=== PATIENT | male | born 1955 | race Caucasian/White ===

== ENCOUNTER 2017-10-18 11:03 | Day surgery (SDC) | payer OTHER ==
[~2017-10-18 11:03] MED LIST: Buffered Lidocaine 0.9% SYRIN* 5 ML/SYR SYRINGE INTRADERM ONE
[2017-10-18] MEDS ORDERED: ceFAZolin 2 GM PREMIX (*) 2 GM/50 ML BAG IVPB ONE (11:10)
[2017-10-18] MEDS ORDERED: Buffered Lidocaine 0.9% SYRIN* 5 ML/SYR SYRINGE ONE (11:10)
[2017-10-18] MEDS ORDERED: Midazolam* 1 MG/ML 2 ML VIAL (2 MG) ONE (11:19)
[2017-10-18] MEDS ORDERED: fentaNYL* 50 MCG/ML 2 ML VIAL (100 MCG VIAL) ONE ×2 (11:19→13:37)
[2017-10-18] MEDS ORDERED: Phenylephrine IV* 40 MCG/ML 10 ML SYRINGE ONE (11:27)
[2017-10-18] MEDS ORDERED: Bupivacaine 0.25% SDV* 30 ML ONE (12:58)
[2017-10-18] MEDS ORDERED: Propofol* 10 MG/ML 20 ML BTL IV PUSH ONE (13:36)
[2017-10-18] MEDS ORDERED: Lidocaine 2% PF * 5 ML VIAL ONE (13:36)
[2017-10-18] MEDS ORDERED: Succinylcholine* 20 MG/ML 10 ML VIAL ONE (13:36)
[2017-10-18] MEDS ORDERED: Ondansetron INJ* 2 MG/ML VIAL ONE (13:36)
[2017-10-18] MEDS ORDERED: Dexamethasone IV* 4 MG/ML 1 ML (4 MG) ONE (13:36)
[2017-10-18] MEDS ORDERED: EPHEDrine (Pressors)* 50 MG/ML VIAL ONE (13:50)
[2017-10-18] MEDS ORDERED: Glycopyrrolate IV* 0.2 MG/ML 1 ML VIAL ONE (13:50)
[2017-10-18] MEDS ORDERED: Ketorolac INJ* 30 MG/ML 1 ML VIAL IV PRN (14:24)
[2017-10-18] MEDS ORDERED: Acetaminophen TAB* 325 MG PO PRN (14:24)
[2017-10-18] MEDS ORDERED: HYDROmorphone INJ* 1 MG/ML CARPUJECT SYRINGE IV PRN (14:24)
[2017-10-18 15:08] VITALS: BP 129/79
[2017-10-18] MEDS ORDERED: Ketorolac INJ* 30 MG/ML 1 ML VIAL ONE (15:09)
[2017-10-18] MEDS ORDERED: Acetaminophen ADULT LIQ* 650 MG/20.3 ML UDC ONE (15:10)
--- NOTE | 2017-10-19 01:12 | OP ---
CC: Dr. Silva * DATE OF OPERATION: 10/18/17 - [facility] DATE OF : 53 SURGEON: Jameson Rae MD MACHINE DESIGN TEACHER: Jovita Salazar NP ANESTHESIOLOGIST: Dr. Perea. ANESTHESIA: General anesthetic, local infiltration. PRE-OP DIAGNOSIS: Left inguinal hernia. POST-OP DIAGNOSIS: Left inguinal hernia. OPERATIVE PROCEDURE: Laparoscopic repair of left inguinal hernia with mesh. DESCRIPTION OF PROCEDURE: The patient was supine on the operative table. After adequate general anesthetic, compression stockings, Michael Hugger warmer, and intravenous antibiotics, the abdomen was prepped with antiseptic, draped in a sterile fashion. Local infiltrative anesthesia was administered. A small infraumbilical incision was created and the preperitoneal plane was entered. Balloon dissector was utilized. Camera was inserted. Insufflation was carried out and the dissection continued bluntly until the left side of the preperitoneal space was freed up. There was a moderately large indirect hernia sac, which was completely dissected free and pulled up out of the internal ring , from the cord structures without any difficulty. The direct space did not have any evidence of hernia. A large left preformed inguinal patch was utilized. It was cut by about a centimeter and half in the cranial caudad direction to trim it a little bit and then it was tacked down to the Luciano's ligament, to the anterior musculature and out laterally. It covered very nicely. No clips were placed in the region of the vessels and the insufflation was allowed to escape. The cannula removed. Umbilical fascia was repaired with 0 Vicryl, skin with 5-0 Vicryl followed by Steri-Strips. He tolerated the procedure well, was awakened and brought to Recovery in good condition. No complications. No drains. No pathologic specimens. Sponge and instrument counts were correct. Estimated blood loss is 10 mL. [id number] #: [id number] [facility]
== END 2017-10-18 15:30 | disposition home or self-care (01) ==
LOC: OR 11:03
PROVIDERS: ATTEND Surgery
DX: K40.90 Unilateral inguinal hernia, without obstruction or gangrene, not specified as recurrent (principal); Z87.891 Personal history of nicotine dependence; F41.9 Anxiety disorder, unspecified
CPT/HCPCS: A9270-GY; C1781; J0330; J0690; J1100; J1885; J2250; J2405; J2704; J3010

== ENCOUNTER 2018-04-05 12:17 | Emergency (ER) | payer OTHER ==
[2018-04-05 13:09] VITALS: BP 146/69
--- NOTE | 2018-04-05 14:16 | UC ---
Skin Complaint HPI - HPI Summary HPI Summary: 62 yo WM c/o "skin cuts" in between toes, noted when taking yoga., usually wears sneakers and socks most of the day and hardly spends time barefoot - History of Current Complaint Chief Complaint: UCLowerExtremity Time Seen by Provider: 04/05/18 13:44 Stated Complaint: SKIN ON FOOT COMPLAINT Hx Obtained From: Patient Onset/Duration: Lasting Days, Lasting Weeks Skin Exposure Onset/Duration: Days Ago Onset Severity: Moderate Current Severity: Moderate Pain Intensity: 0 - Allergy/Home Medications Allergies/Adverse Reactions: Allergies Allergy/AdvReac Type Severity Reaction Status Date / Time MS Ciprofloxacin [From Cipro] Allergy Anxiety Verified 04/05/18 13:03 Review of Systems Constitutional: Negative Skin: Other - skin cuts in between toes Eyes: Negative ENT: Negative Respiratory: Negative Cardiovascular: Negative Gastrointestinal: Negative Genitourinary: Negative Motor: Negative Neurovascular: Negative Musculoskeletal: Negative Neurological: Negative Psychological: Negative All Other Systems Reviewed And Are Negative: Yes PMH/Surg Hx/FS Hx/Imm Hx - Surgical History Surgical History: Yes Surgery Procedure, Year, and Place: inguinal hernia repair 2017 - Social History Alcohol Use: Daily Alcohol Amount: 2-3 GLASSES OF WINE DAILY Substance Use Type: None Smoking Status (MU): Former Smoker Amount Used/How Often: 1/2 PPD X 40 YEARS Have You Smoked in the Last Year: No When Did the Patient Quit Smoking/Using Tobacco: 01/15/14 - Immunization History Most Recent Influenza Vaccination: never Most Recent Tetanus Shot: unsure Most Recent Pneumonia Vaccination: never Physical Exam Triage Information Reviewed: Yes Vital Signs: Initial Vital Signs Temp 36.7 C 04/05/18 13:04 Pulse 78 04/05/18 13:04 Resp 16 04/05/18 13:04 BP 146/69 04/05/18 13:04 Pulse Ox 99 04/05/18 13:04 Eye Exam: Normal ENT Exam: Normal Dental Exam: Normal Neck exam: Normal Neck: Positive: 1 Respiratory Exam: Normal Cardiovascular Exam: Normal Abdominal Exam: Normal Musculoskeletal Exam: Normal Neurological Exam: Normal Psychological Exam: Normal Skin: Positive: significant lesion(s) - skin fissures in toewebs, no d/c Course/Dx - Course Course Of Treatment: possible evolving fungal infection with current bacterial skin fissures in webs of toes- DRY OUT FEET MUCH POSSIBLE AND APPLY VERY THIN LAYER OF NEOSPORIN CREAM AT NIGHT ONLY for a week - Diagnoses Provider Diagnoses: skin fissures in toe webs B/L Discharge - Sign-Out/Discharge Documenting (check all that apply): Discharge/Admit/Transfer - Discharge Plan Condition: Stable Disposition: HOME Referrals: Zita Silva MD [Primary Care Provider] - Additional Instructions: possible evolving fungal infection with current bacterial skin fissures in webs of toes- DRY OUT FEET MUCH POSSIBLE AND APPLY VERY THIN LAYER OF NEOSPORIN CREAM AT NIGHT ONLY for a WEEK - Billing Disposition and Condition Condition: STABLE Disposition: HOME
== END 2018-04-05 14:23 | disposition home or self-care (01) ==
LOC: UCEAST 12:17
DX: R23.4 Changes in skin texture (principal); Z88.1 Allergy status to other antibiotic agents; Z87.891 Personal history of nicotine dependence
CPT/HCPCS: 99211; G0463

== ENCOUNTER 2019-05-08 12:36 | Emergency (ER) | payer MEDICARE ==
[2019-05-08 12:46] VITALS: BP 123/77
--- NOTE | 2019-05-08 12:58 | UC ---
General HPI - HPI Summary HPI Summary: Recurrent issues with tick bites and rash. States beginning of April had nymph tick bite - week later had rash - started on doxycyline. During that time had a nymph bite on right anle. Patient started on doxy 04/16. Was off the doxy for 2 days - noticed left ankle another nymph and then developed puritic rash. PCP thought it was poison danielle and he has been treating with chalmonine lotion. Developed another concerning lyme like rash on his left leg and restarted doxycycline last wednesday 05/02 and is still on it. Concern that he has since developed a itching rash in back on his left leg. Meds: Reviewed Denies any new soaps, detergents, etc - History of Current Complaint Chief Complaint: Anmol Stated Complaint: RASH AND TICK BITE Time Seen by Provider: 05/08/19 12:44 Pain Intensity: 0 - Allergy/Home Medications Allergies/Adverse Reactions: Allergies Allergy/AdvReac Type Severity Reaction Status Date / Time ciprofloxacin [From Cipro] Allergy Anxiety Verified 05/08/19 12:46 MS Ciprofloxacin [From Cipro] Allergy Anxiety Verified 04/05/18 13:03 Home Medications: Home Medications Doxycycline Hyclate 1 tab PO BID 05/08/19 [History Confirmed 05/08/19] PMH/Surg Hx/FS Hx/Imm Hx Previously Healthy: Yes - Surgical History Surgical History: Yes Surgery Procedure, Year, and Place: inguinal hernia repair 2016 - Social History Alcohol Use: Daily Alcohol Amount: 2-3 GLASSES OF WINE DAILY Substance Use Type: None Smoking Status (MU): Former Smoker Amount Used/How Often: 1/2 PPD X 40 YEARS Have You Smoked in the Last Year: No When Did the Patient Quit Smoking/Using Tobacco: 01/15/14 - Immunization History Most Recent Influenza Vaccination: never Most Recent Tetanus Shot: unsure Most Recent Pneumonia Vaccination: never Review of Systems All Other Systems Reviewed And Are Negative: Yes Physical Exam Triage Information Reviewed: Yes Appearance: Well-Appearing Vital Signs: Initial Vital Signs Temp 98.7 F 05/08/19 12:43 Pulse 72 05/08/19 12:43 Resp 16 05/08/19 12:43 BP 123/77 05/08/19 12:43 Pulse Ox 100 05/08/19 12:43 Vital Signs Reviewed: Yes Skin: Positive: Other - erythematous rash right ankle, mild skin break down posterior knee right leg - maculopapular erythematous small circular lesions Course/Dx - Course Course Of Treatment: This is a 63 yr old here with a rash Findings consistent with contact dermatitis/poison danielle Plan Recommend continuing calamine lotion to the areas Can also use hydrocortisone cream to affected areas 2x/day Recommend keeping nails short and washing underneath fingernails with soap and water - Diagnoses Provider Diagnosis: Poison danielle dermatitis Discharge - Sign-Out/Discharge Documenting (check all that apply): Patient Departure All imaging exams completed and their final reports reviewed: No Studies - Discharge Plan Condition: Good Disposition: HOME Patient Education Materials: Poison Danielle (ED) Referrals: Zita Silva MD [Primary Care Provider] - Additional Instructions: Recommend continuing calamine lotion to the areas Can also use hydrocortisone cream to affected areas 2x/day Recommend keeping nails short and washing underneath fingernails with soap and water - Billing Disposition and Condition Condition: GOOD Disposition: Home
== END 2019-05-08 13:21 | disposition home or self-care (01) ==
LOC: UCEAST 12:36
DX: L23.7 Allergic contact dermatitis due to plants, except food (principal); Z87.891 Personal history of nicotine dependence
CPT/HCPCS: 99212; G0463

== ENCOUNTER 2020-04-25 16:19 | Inpatient (IN) ==
[2020-04-25] MEDS ORDERED: NS 0.9% 1000 ml BAG 1,000 ML IV ONE (16:53)
[2020-04-25 17:18] LABS: ABS Lymphocytes 0.8 10^3/ul (1.0-4.8); ABS Monocytes 1.1 10^3/ul (0-0.8); Eosinophil % 0.1 %; Hematocrit 44 % (42-52); Hemoglobin 15.1 g/dL (14.0-18.0); Lymphocyte % 5.6 %; Mean Corpuscular HGB Conc 34 g/dL (31-36); Mean Corpuscular Hemoglobin 33 pg (27-31); Mean Corpuscular Volume 98 fL (80-94); Mean Platelet Volume 9.4 fL (7.4-10.4); Platelet Count 185 10^3/uL (150-450); Red Blood Count 4.52 10^6 /uL (4.18-5.48); Red Cell Distribution Width 13 % (10-15)
[2020-04-25 17:37] LABS: Albumin 4.4 g/dL (3.2-5.2); Albumin/Globulin Ratio 1.5 (1-3); BUN/Creatinine Ratio 14.5 (8-20); C Reactive Protein 74.08 mg/L (<8.01); Calcium 9.7 mg/dL (8.6-10.3); EGFR African American 112.5 (>60); Total Protein 7.4 g/dL (6.4-8.9)
[2020-04-25] MEDS ORDERED: Iohexol 300 (CONTRAST) 10 ML SDV IV ONE (18:02)
[2020-04-25] MEDS ORDERED: Piperacillin/Tazobac ADVAN(*) 3.375 GM in NS 0.9% 100 ml BAG 100 ML IVPB ONE (19:04)
[2020-04-25] MEDS ORDERED: Piperacillin/Tazobac (*) 3.375 GM BAG ONE (19:12)
[2020-04-25] MEDS ORDERED: Morphine 2 MG/ML SYRINGE IV PRN (20:26)
[2020-04-25] MEDS ORDERED: Ondansetron 4 mg VIAL 2 MG/ML 2 ml VIAL IV PRN (20:26)
[2020-04-25] MEDS ORDERED: Piperacillin/Tazobac ADVAN(*) 3.375 GM in NS 0.9% 100 ml BAG 100 ML IV SCH (21:00)
[2020-04-25] MEDS: Diazepam INJ CARPUJECT 5 MG/ML IV PRN (21:32)
[2020-04-25] MEDS: Piperacillin/Tazobac ADVAN(*) 3.375 GM in NS 0.9% 100 ml BAG 100 ML IV SCH (23:33)
[2020-04-25] MEDS: Enoxaparin 40 MG/0.4 ML SYR(*) SUBCUT SCH (23:33)
[2020-04-26 03:11] LABS: Urine Bacteria Absent (Absent); Urine Red Blood Cell Trace(0-2/hpf) (Absent); Urine White Blood Cell Absent (Absent)
[2020-04-26 03:13] LABS: Urine Appearance Clear; Urine Color Straw
[2020-04-26 03:14] LABS: Urine Bilirubin Negative (Negative); Urine Blood Negative (Negative); Urine Glucose Negative (Negative); Urine Ketones Negative (Negative); Urine Nitrite Negative (Negative); Urine Protein Negative (Negative); Urine Specific Gravity 1.016 (1.010-1.030); Urine Urobilinogen Negative (Negative)
[2020-04-26 06:45] LABS: ABS Lymphocytes 1.3 10^3/ul (1.0-4.8); ABS Monocytes 1.1 10^3/ul (0-0.8); Eosinophil % 0.1 %; Hematocrit 39 % (42-52); Hemoglobin 13.4 g/dL (14.0-18.0); Lymphocyte % 9.4 %; Mean Corpuscular HGB Conc 34 g/dL (31-36); Mean Corpuscular Hemoglobin 34 pg (27-31); Mean Corpuscular Volume 99 fL (80-94); Mean Platelet Volume 9.3 fL (7.4-10.4); Platelet Count 155 10^3/uL (150-450); Red Blood Count 3.94 10^6 /uL (4.18-5.48); Red Cell Distribution Width 13 % (10-15); White Blood Count 13.5 10^3/uL (3.5-10.8)
[2020-04-26 07:02] LABS: BUN/Creatinine Ratio 11.1 (8-20); Calcium 8.8 mg/dL (8.6-10.3); EGFR African American 102.5 (>60); EGFR Non-African American 84.7 (>60)
[2020-04-26] MEDS: Piperacillin/Tazobac ADVAN(*) 3.375 GM in NS 0.9% 100 ml BAG 100 ML IV SCH ×3 (07:37→23:43)
[2020-04-26] MEDS: Diazepam INJ CARPUJECT 5 MG/ML IV PRN (11:20)
[2020-04-26] MEDS: NS 0.9% 1000 ml BAG 1,000 ML IV SCH ×3 (11:21→23:54)
[2020-04-26] MEDS ORDERED: Diazepam INJ CARPUJECT 5 MG/ML IV PRN (12:11)
[2020-04-26] MEDS ORDERED: Diazepam 5 mg TAB (*) PO PRN ×2 (16:30→18:00)
[2020-04-26] MEDS ORDERED: Diazepam 5 mg TAB (*) PO ONE (21:00)
[2020-04-26] MEDS: Enoxaparin 40 MG/0.4 ML SYR(*) SUBCUT SCH (21:35)
[2020-04-27 06:46] LABS: ABS Basophils 0.1 10^3/ul (0-0.2); ABS Lymphocytes 1.3 10^3/ul (1.0-4.8); ABS Monocytes 0.8 10^3/ul (0-0.8); Eosinophil % 0.5 %; Hematocrit 37 % (42-52); Hemoglobin 12.7 g/dL (14.0-18.0); Lymphocyte % 12.2 %; Mean Corpuscular HGB Conc 35 g/dL (31-36); Mean Corpuscular Hemoglobin 34 pg (27-31); Mean Corpuscular Volume 99 fL (80-94); Mean Platelet Volume 9.3 fL (7.4-10.4); Platelet Count 142 10^3/uL (150-450); Red Blood Count 3.71 10^6 /uL (4.18-5.48); Red Cell Distribution Width 13 % (10-15); White Blood Count 10.3 10^3/uL (3.5-10.8)
[2020-04-27 07:04] LABS: Calcium 8.3 mg/dL (8.6-10.3); EGFR African American 114.1 (>60); EGFR Non-African American 94.3 (>60); Potassium 3.9 mmol/L (3.5-5.0)
[2020-04-27] MEDS: Piperacillin/Tazobac ADVAN(*) 3.375 GM in NS 0.9% 100 ml BAG 100 ML IV SCH (07:14)
[2020-04-27 11:18] VITALS: BP 127/69
== END 2020-04-27 12:20 | disposition home or self-care (01) | DRG 392 ==
LOC: ED 16:19 → MED 22:35
PROVIDERS: ADMIT Pediatrics; ATTEND Internal Medicine